=== PATIENT | male | born 1955 | race Native Hawaiian/Other Pacific Islander ===

== ENCOUNTER 2017-08-19 18:54 | Emergency (ER) | payer OTHER ==
[~2017-08-19] VITALS: Ht 162.6 cm; Wt 87.0 kg
[2017-08-19 18:56] VITALS: BP 118/76; PULSE 125; RESP 16; TEMP 99.9; O2SAT 96
[2017-08-19] MEDS ORDERED: LATA0.002 EACH EYE (19:06)
[2017-08-19] MEDS ORDERED: OMEP20TA93 PO (19:06)
[2017-08-19] MEDS ORDERED: DOXA1TAB34 PO (19:06)
[2017-08-19] MEDS ORDERED: LISI10TA3 PO (19:06)
[2017-08-19] MEDS ORDERED: ATOR20TA15 PO (19:06)
--- NOTE | 2017-08-19 19:33 | PD ---
HPI Chief Complaint: Cold / Flu Symptoms Time Seen by Provider: 19:24 Travel History International Travel<30 days: No Contact w/Intl Traveler<30days: No Traveled to known affect area: No History of Present Illness HPI 62-year-old male complains of nasal congestion, sore throat, coughing, chills. Patient states the symptoms started yesterday. Patient denies any headache. Patient denies any neck pain. Patient states the cough is intermittent and dry cough. Patient denies abdominal pain. Patient denies any nausea vomiting diarrhea. Patient denies any fever. Patient states that he had chills. Patient complains of myalgia. PFSH Past Medical History High Cholesterol: Yes GERD: Yes Hypertension: Yes Medical other: Yes (BPH ) Past Surgical History Appendectomy: Yes Social History Alcohol Use: No Tobacco Use: Yes Substance Use: No Allergies-Medications (Allergen,Severity, Reaction): Coded Allergies: No Known Allergies (Unverified , 08/19/17) Reported Meds & Prescriptions Reported Meds & Active Scripts Active Reported Omeprazole 20 Mg Tab 20 Mg PO DAILY Lisinopril 10 Mg Tab 10 Mg PO DAILY Latanoprost Opth Drops (Latanoprost) 0.005% Drops 1 Drop EACH EYE HS Refrigerate until opened. Doxazosin (Doxazosin Mesylate) 4 Mg Tab 4 Mg PO DAILY Atorvastatin (Atorvastatin Calcium) 20 Mg Tab 20 Mg PO HS Review of Systems General / Constitutional: No: Fever Eyes: No: Visual changes HENT: Positive: Sore Throat, Congestion, No: Headaches Cardiovascular: No: Chest Pain or Discomfort Respiratory: Positive: Cough, No: Shortness of Breath Gastrointestinal: No: Abdominal Pain Genitourinary: No: Dysuria Musculoskeletal: No: Pain Skin: No Rash Neurologic: No: Weakness Psychiatric: No: Depression Endocrine: No: Polydipsia Hematologic/Lymphatic: No: Easy Bruising Physical Exam Narrative GENERAL: Well-nourished, well-developed patient. SKIN: Focused skin assessment warm/dry. HEAD: Normocephalic. EYES: No scleral icterus. No injection or drainage. Throat: Mild erythematous. NECK: Supple, trachea midline. No JVD or lymphadenopathy. No meningismus CARDIOVASCULAR: Regular rate and rhythm without murmurs, gallops, or rubs. RESPIRATORY: Breath sounds equal bilaterally. No accessory muscle use. GASTROINTESTINAL: Abdomen soft, non-tender, nondistended. MUSCULOSKELETAL: No cyanosis, or edema. BACK: Nontender without obvious deformity. No CVA tenderness. Neurologic exam normal. Data Data Last Documented VS Vital Signs Date Time Temp Pulse Resp B/P (MAP) Pulse Ox O2 Delivery O2 Flow Rate FiO2 08/19/17 18:56 99.9 125 16 118/76 (90) 96 Room Air Orders Orders Group A Rapid Strep Screen (08/19/17 19:30) Influenzae A/B Antigen (08/19/17 19:30) Chest, Single Ap (08/19/17 19:30) Strep Culture (Group A) (08/19/17 19:35) MDM Medical Decision Making Medical Screen Exam Complete: Yes Emergency Medical Condition: Yes Interpretation(s) 21:12 PM. Chest x-ray shows no acute process. Strep screen negative. Patient positive for flu A antigen. Differential Diagnosis Differential diagnosis including viral syndrome, pharyngitis, bronchitis, pneumonia. Narrative Course 62-year-old male with sore throat, coughing, congestion, chills Diagnosis Primary Impression: Influenza A Patient Instructions: General Instructions Additional Instructions: Tamiflu as directed. Tylenol or ibuprofen for aching pain. Tylenol for fever. Follow-up with personal physician. [id number] cough medication as needed. Return if worse. Scripts Oseltamivir (Tamiflu) 75 Mg Cap 75 MG PO BID for Mgmt Viral Infection, #10 CAP 0 Refills Prov: Yonis Delgado MD 08/19/17 Disposition: 01 DISCHARGE HOME Condition: Stable Yonis Delgado MD Aug 19, 2017 19:33
--- NOTE | 2017-08-19 21:06 | RADRPT ---
EXAM DATE/TIME: 08/19/2017 20:40 [facility] COMPARISON: No previous studies available for comparison. INDICATIONS : Cough. MEDICAL HISTORY : Hypertension. SURGICAL HISTORY : None. ENCOUNTER: Initial ACUITY: 1 day PAIN SCORE: 0/10 LOCATION: Bilateral chest. FINDINGS: The lungs are clear without infiltrate, nodule, or mass. There is no appreciable pleural effusion fo r technique. Heart and mediastinum are unremarkable. CONCLUSION: No acute cardiopulmonary disease. Geraldo Lazcano MD on August 19, 2017 at 21:03 Board Certified Radiologist. This report was verified electronically.
[2017-08-19] MEDS ORDERED: OSEL75 PO (21:19)
== END 2017-08-19 21:30 | disposition home or self-care (01) ==
LOC: NEPC 18:54
DX: J09.X2 Influenza due to identified novel influenza A virus with other respiratory manifestations (principal); E78.00 Pure hypercholesterolemia, unspecified; K21.9 Gastro-esophageal reflux disease without esophagitis; I10 Essential (primary) hypertension; N40.0 Benign prostatic hyperplasia without lower urinary tract symptoms; Z79.899 Other long term (current) drug therapy; Z72.0 Tobacco use
CPT/HCPCS: 71045; 87081; 87804; 87880; 99284